=== PATIENT | male | born 1985 | race Caucasian/White ===

== ENCOUNTER 2017-04-24 12:17 | Emergency (ER) | payer SELFPAY | END 2017-04-24 13:04 | disposition left against medical advice (07) | LOC: EMS 12:18 | DX: H57.10 Ocular pain, unspecified eye (principal); Z53.21 Procedure and treatment not carried out due to patient leaving prior to being seen by health care provider ==

== ENCOUNTER 2017-04-24 16:07 | Emergency (ER) | payer SELFPAY ==
[~2017-04-24] VITALS: Ht 170.2 cm; Wt 148.1 kg
[2017-04-24 20:11] VITALS: BP 132/81
== END 2017-04-24 20:13 | disposition home or self-care (01) ==
LOC: EMS 16:22
DX: H16.133 Photokeratitis, bilateral (principal); F17.210 Nicotine dependence, cigarettes, uncomplicated; W89.8XXA Exposure to other man-made visible and ultraviolet light, initial encounter; Y93.89 Activity, other specified; Y92.89 Other specified places as the place of occurrence of the external cause; Y99.0 Civilian activity done for income or pay
CPT/HCPCS: 99283

== ENCOUNTER 2017-05-01 02:19 | Emergency (ER) | payer SELFPAY ==
[~2017-05-01] VITALS: Ht 172.7 cm; Wt 145.4 kg
[2017-05-01 03:58] VITALS: BP 138/70
== END 2017-05-01 04:02 | disposition home or self-care (01) ==
LOC: EMS 02:20
DX: S20.212A Contusion of left front wall of thorax, initial encounter (principal); F17.210 Nicotine dependence, cigarettes, uncomplicated; F15.90 Other stimulant use, unspecified, uncomplicated; Y04.0XXA Assault by unarmed brawl or fight, initial encounter; Y93.89 Activity, other specified; Y92.89 Other specified places as the place of occurrence of the external cause; Y99.8 Other external cause status
CPT/HCPCS: 71101; 99284; 99406

== ENCOUNTER 2022-03-07 16:14 | Emergency (ER) | payer MEDICAID ==
[2022-03-07] MEDS ORDERED: SODIUM CHLORIDE 0.9% 1,000 ML IV ONE (16:45)
[2022-03-07 16:55] LABS: HEMOGLOBIN 14.3 g/dL (13.5-17.5); RED BLOOD CELL COUNT(AUTO) 4.96 MIL/uL (4.50-5.90)
[2022-03-07 16:56] LABS: BASOPHILS % (AUTO) 0.5 % (0.0-2.0); LYMPHOCYTES # (AUTO) 1.8 K/uL (1.0-4.8); LYMPHOCYTES % (AUTO) 15.8 % (22.0-44.0); MEAN CORPUSCULAR HEMOGLOBIN 28.8 pg (26.0-34.0); MEAN CORPUSCULAR HGB CONC 33.2 G/dL (31.0-37.0); MEAN CORPUSCULAR VOLUME 87 fL (80-100); MONOCYTES # (AUTO) 0.7 K/uL (0.1-1.0); MONOCYTES % (AUTO) 6.2 % (2.0-9.0); NEUTROPHILS # (AUTO) 8.5 K/uL (1.8-7.7); NEUTROPHILS % (AUTO) 76.5 % (40.0-70.0); PLATELET COUNT (AUTO) 322 K/uL (150-450); RED CELL DISTRIBUTION WIDTH 14.3 % (11.5-14.5)
[2022-03-07 17:07] LABS: ANION GAP 9 mmol/L (8-16); CALCIUM, TOTAL 9.1 mg/dL (8.8-10.5); CARBON DIOXIDE 28 mmol/L (22-29); CHLORIDE 103 mmol/L (98-107); CREATININE 0.87 mg/dL (0.60-1.30); GLOMERULAR FILTR. RATE CALC > 60 mL/min (>60); GLUCOSE,RANDOM 105 mg/dL (70-110); POTASSIUM 3.6 mmol/L (3.5-5.1); SODIUM SERUM 140 mmol/L (136-145); UREA NITROGEN, BLOOD 14 mg/dL (7-18)
[2022-03-07 17:12] LABS: ALANINE AMINOTRANSFERASE 43 U/L (12-78); ALBUMIN 3.9 g/dL (3.4-5.0); ALKALINE PHOSPHATASE 102 U/L (46-116); ASPARTATE AMINOTRANSFERASE 25 U/L (15-37); BILIRUBIN,TOTAL 0.5 mg/dL (0.1-1.0); LIPASE 115 U/L (73-393)
[2022-03-07] MEDS ORDERED: POLY17PO PO (18:30)
== END 2022-03-07 18:44 | disposition home or self-care (01) ==
LOC: EMS 16:24
DX: F25.9 Schizoaffective disorder, unspecified (principal); R10.30 Lower abdominal pain, unspecified; F15.90 Other stimulant use, unspecified, uncomplicated; F17.210 Nicotine dependence, cigarettes, uncomplicated; Z79.899 Other long term (current) drug therapy
CPT/HCPCS: 36415; 74022; 74176; 80053; 83690; 85025; 96360; 99285; G0480; J7030

== ENCOUNTER 2022-09-04 12:11 | Emergency (ER) | payer MEDICAID ==
[~2022-09-04] VITALS: Ht 170.2 cm; Wt 185.4 kg
[~2022-09-04 12:11] MED LIST: POLY17PO PO
[2022-09-04] MEDS ORDERED: BUPR-50 PO ×2 (12:33→15:12)
[2022-09-04] MEDS ORDERED: TRAZ-252 PO ×2 (12:33→15:12)
[2022-09-04] MEDS ORDERED: OLAN2.5T29 PO ×2 (12:33→15:12)
[2022-09-04] MEDS ORDERED: ZIPR20CA38 PO ×2 (12:33→15:12)
[2022-09-04 13:02] LABS: BASOPHILS % (AUTO) 0.5 % (0.0-2.0); EOSINOPHILS % (AUTO) 1.7 % (1.0-6.0); HEMATOCRIT 41.4 % (41-53); HEMOGLOBIN 13.6 g/dL (13.5-17.5); LYMPHOCYTES # (AUTO) 1.8 K/uL (1.0-4.8); LYMPHOCYTES % (AUTO) 16.8 % (22.0-44.0); MEAN CORPUSCULAR HEMOGLOBIN 28.8 pg (26.0-34.0); MEAN CORPUSCULAR HGB CONC 32.9 G/dL (31.0-37.0); MEAN CORPUSCULAR VOLUME 88 fL (80-100); MONOCYTES # (AUTO) 0.6 K/uL (0.1-1.0); NEUTROPHILS # (AUTO) 8.1 K/uL (1.8-7.7); PLATELET COUNT (AUTO) 333 K/uL (150-450); RED BLOOD CELL COUNT(AUTO) 4.73 MIL/uL (4.50-5.90); RED CELL DISTRIBUTION WIDTH 13.9 % (11.5-14.5)
[2022-09-04 13:26] LABS: ANION GAP 8 mmol/L (8-16); CALCIUM, TOTAL 8.9 mg/dL (8.8-10.5); CARBON DIOXIDE 27 mmol/L (22-29); CHLORIDE 101 mmol/L (98-107); CREATININE 0.85 mg/dL (0.60-1.30); GLUCOSE,RANDOM 110 mg/dL (70-110); POTASSIUM 3.5 mmol/L (3.5-5.1); SODIUM SERUM 136 mmol/L (136-145); UREA NITROGEN, BLOOD 12 mg/dL (7-18)
[2022-09-04 13:32] LABS: GLOMERULAR FILTR. RATE CALC > 60 mL/min (>60)
[2022-09-04 13:36] LABS: ALANINE AMINOTRANSFERASE 28 U/L (12-78); ALBUMIN 3.6 g/dL (3.4-5.0); ALKALINE PHOSPHATASE 104 U/L (46-116); ASPARTATE AMINOTRANSFERASE 23 U/L (15-37); BILIRUBIN,TOTAL 0.6 mg/dL (0.1-1.0); TOTAL PROTEIN, SERUM 7.8 g/dL (6.4-8.2)
[2022-09-04] MEDS ORDERED: OLANZapine 5 MG RAPDIS TABLET PO ONE (15:15)
[2022-09-04 15:52] LABS: AMPHET/METH SCREEN,URINE POSITIVE (NEGATIVE); BARBITURATE SCREEN, URINE NEGATIVE (NEGATIVE); BENZODIAZEPINES SCREEN,URINE NEGATIVE (NEGATIVE); CANNABINOID SCREEN,URINE NEGATIVE (NEGATIVE); COCAINE SCREEN,URINE NEGATIVE (NEGATIVE); METHADONE SCREEN, URINE NEGATIVE (NEGATIVE); OPIATE SCREEN,URINE NEGATIVE (NEGATIVE)
[2022-09-04 15:53] LABS: PHENCYCLIDINE SCREEN,URINE NEGATIVE (NEGATIVE)
[2022-09-04 16:42] VITALS: BP 122/73
== END 2022-09-04 16:44 | disposition home or self-care (01) ==
LOC: EMS 12:36
DX: F25.9 Schizoaffective disorder, unspecified (principal); R45.851 Suicidal ideations; F15.90 Other stimulant use, unspecified, uncomplicated; F17.210 Nicotine dependence, cigarettes, uncomplicated; F32.A Depression, unspecified; Z76.0 Encounter for issue of repeat prescription
CPT/HCPCS: 99284; 80053; 85025; 36415; 80307; G0480

== ENCOUNTER 2022-10-02 23:24 | Inpatient (IN) | payer MEDICAID ==
[~2022-10-02] VITALS: Ht 167.6 cm; Wt 161.5 kg
[~2022-10-02 23:24] MED LIST changes: +BUPR-50 PO; +OLAN2.5T29 PO; -POLY17PO PO; +TRAZ-252 PO; +ZIPR20CA38 PO
[2022-10-02 23:52] LABS: COVID AG,FIA SOURCE NASOPHARYNGEAL
[2022-10-03 00:07] LABS: ANION GAP 12 mmol/L (8-16); CARBON DIOXIDE 28 mmol/L (22-29); CHLORIDE 101 mmol/L (98-107); CREATININE 0.99 mg/dL (0.60-1.30); GLOMERULAR FILTR. RATE CALC > 60 mL/min (>60); GLUCOSE,RANDOM 99 mg/dL (70-110); POTASSIUM 3.7 mmol/L (3.5-5.1); SODIUM SERUM 141 mmol/L (136-145); UREA NITROGEN, BLOOD 14 mg/dL (7-18)
[2022-10-03 00:11] LABS: ALANINE AMINOTRANSFERASE 34 U/L (12-78); ALKALINE PHOSPHATASE 95 U/L (46-116); ASPARTATE AMINOTRANSFERASE 24 U/L (15-37); BILIRUBIN,TOTAL 0.4 mg/dL (0.1-1.0); TOTAL PROTEIN, SERUM 8.5 g/dL (6.4-8.2)
[2022-10-03 00:14] LABS: BASOPHILS % (AUTO) 0.6 % (0.0-2.0); EOSINOPHILS % (AUTO) 0.7 % (1.0-6.0); HEMATOCRIT 42.8 % (41-53); HEMOGLOBIN 14.1 g/dL (13.5-17.5); LYMPHOCYTES # (AUTO) 1.5 K/uL (1.0-4.8); LYMPHOCYTES % (AUTO) 17.1 % (22.0-44.0); MEAN CORPUSCULAR HEMOGLOBIN 29.1 pg (26.0-34.0); MEAN CORPUSCULAR HGB CONC 33.1 G/dL (31.0-37.0); MEAN CORPUSCULAR VOLUME 88 fL (80-100); MONOCYTES # (AUTO) 0.6 K/uL (0.1-1.0); MONOCYTES % (AUTO) 6.9 % (2.0-9.0); NEUTROPHILS # (AUTO) 6.7 K/uL (1.8-7.7); NEUTROPHILS % (AUTO) 74.7 % (40.0-70.0); PLATELET COUNT (AUTO) 359 K/uL (150-450); RED BLOOD CELL COUNT(AUTO) 4.86 MIL/uL (4.50-5.90); RED CELL DISTRIBUTION WIDTH 14.4 % (11.5-14.5)
[2022-10-03 00:16] LABS: AMPHET/METH SCREEN,URINE POSITIVE (NEGATIVE); BARBITURATE SCREEN, URINE NEGATIVE (NEGATIVE); BENZODIAZEPINES SCREEN,URINE NEGATIVE (NEGATIVE); CANNABINOID SCREEN,URINE NEGATIVE (NEGATIVE); COCAINE SCREEN,URINE NEGATIVE (NEGATIVE); METHADONE SCREEN, URINE NEGATIVE (NEGATIVE); OPIATE SCREEN,URINE NEGATIVE (NEGATIVE)
[2022-10-03 00:17] LABS: PHENCYCLIDINE SCREEN,URINE NEGATIVE (NEGATIVE)
[2022-10-03] MEDS ORDERED: HALOPERIDOL 5 MG TABLET PO PRN (00:30)
[2022-10-03] MEDS ORDERED: OLANZapine 5 MG TABLET PO ONE (01:45)
[2022-10-03] MEDS: LORazepam 2 MG TABLET PO PRN (02:12)
[2022-10-03 02:30] VITALS: BP 135/85
[2022-10-03 08:24] VITALS: BP 100/61
[2022-10-03] MEDS ORDERED: MAG HYDROX/AL HYDROX/SIMETH ES 30 ML SUSPENSION UDCUP PO PRN (11:30)
[2022-10-03] MEDS ORDERED: MAGNESIUM HYDROXIDE SUSPENSION 30 ML UDCUP PO PRN (11:30)
[2022-10-03] MEDS ORDERED: GuaiFENesin/D-METHORPHAN [SUGAR-FREE] 200-20MG/10 ML SYRUP UDCUP PO PRN (11:30)
[2022-10-03] MEDS ORDERED: ONDANSETRON HCL 4 MG TABLET PO PRN (11:30)
[2022-10-03] MEDS ORDERED: PETROLATUM,WHITE 28 GM JELLY TP PRN (11:30)
[2022-10-03] MEDS ORDERED: IBUPROFEN 400 MG TABLET PO PRN (11:30)
[2022-10-03] MEDS: BuPROPion HCL XL 150 MG ER TABLET PO SCH (11:30)
[2022-10-03] MEDS ORDERED: ALBUTEROL SULFATE HFA 90 MCG/PUFF 8 GM INHALER IH PRN (11:30)
[2022-10-03] MEDS ORDERED: LOPERAMIDE HCL 2 MG CAPSULE PO PRN (11:30)
[2022-10-03] MEDS ORDERED: DOCUSATE SODIUM 100 MG CAPSULE PO PRN (11:30)
[2022-10-03] MEDS ORDERED: ACETAMINOPHEN 325 MG TABLET PO PRN (11:30)
[2022-10-03] MEDS: OLANZapine 10 MG TABLET PO SCH ×2 (11:30→21:05)
[2022-10-03] MEDS ORDERED: CloNIDine HCL 0.1 MG TABLET PO PRN (11:30)
[2022-10-03] MEDS ORDERED: NICOTINE 14 MG/24 HOUR PATCH TD PRN (11:30)
[2022-10-03] MEDS: ZIPRASIDONE HCL 60 MG CAPSULE PO SCH (19:09)
[2022-10-03] MEDS: TraZODone HCL 50 MG TABLET PO SCH (21:05)
[2022-10-04] MEDS: ZIPRASIDONE HCL 60 MG CAPSULE PO SCH ×2 (06:58→16:25)
[2022-10-04] MEDS: OLANZapine 10 MG TABLET PO SCH ×2 (09:01→20:53)
[2022-10-04] MEDS: BuPROPion HCL XL 150 MG ER TABLET PO SCH (09:01)
[2022-10-04 09:30] VITALS: BP 103/55
[2022-10-04 17:43] VITALS: BP 115/56
[2022-10-04] MEDS: TraZODone HCL 50 MG TABLET PO SCH (20:53)
[2022-10-04] MEDS: ZOLPIDEM TARTRATE 10 MG TABLET PO PRN (22:10)
[2022-10-05] MEDS: ZIPRASIDONE HCL 60 MG CAPSULE PO SCH ×2 (06:44→17:28)
[2022-10-05] MEDS: LORazepam 2 MG TABLET PO PRN ×2 (06:45→17:14)
[2022-10-05] MEDS: OLANZapine 10 MG TABLET PO SCH ×2 (08:14→20:22)
[2022-10-05] MEDS: BuPROPion HCL XL 150 MG ER TABLET PO SCH (08:15)
[2022-10-05 08:32] VITALS: BP 118/79
[2022-10-05 16:15] VITALS: BP 133/74
[2022-10-05] MEDS: TraZODone HCL 50 MG TABLET PO SCH (20:22)
[2022-10-06] MEDS: ZIPRASIDONE HCL 60 MG CAPSULE PO SCH ×2 (06:42→17:47)
[2022-10-06] MEDS: OLANZapine 10 MG TABLET PO SCH ×2 (08:34→20:05)
[2022-10-06] MEDS: BuPROPion HCL XL 150 MG ER TABLET PO SCH (08:35)
[2022-10-06 08:53] VITALS: BP 118/75
[2022-10-06 16:09] VITALS: BP 119/76
[2022-10-06] MEDS: TraZODone HCL 50 MG TABLET PO SCH (20:05)
[2022-10-06] MEDS: ZOLPIDEM TARTRATE 10 MG TABLET PO PRN (21:14)
[2022-10-07] MEDS: ZIPRASIDONE HCL 60 MG CAPSULE PO SCH ×2 (06:39→17:30)
[2022-10-07 08:20] VITALS: BP 111/61
[2022-10-07] MEDS: OLANZapine 10 MG TABLET PO SCH (09:44)
[2022-10-07] MEDS: BuPROPion HCL XL 150 MG ER TABLET PO SCH (09:44)
[2022-10-07] MEDS ORDERED: BUPR-49 PO (16:18)
[2022-10-07] MEDS ORDERED: ZIPR60CA29 PO (16:18)
[2022-10-07] MEDS ORDERED: TRAZ-252 PO (16:18)
[2022-10-07] MEDS ORDERED: OLAN10 PO (16:18)
[2022-10-07 16:24] VITALS: BP 129/78
== END 2022-10-07 16:48 | disposition home or self-care (01) | DRG 750 ==
LOC: EMS 23:25 → 3EC 10-03 00:01
PROVIDERS: ADMIT Psychiatry & Neurology Child & Adolescent Psychiatry; ATTEND Psychiatry & Neurology Child & Adolescent Psychiatry
DX: F25.1 Schizoaffective disorder, depressive type (principal); Z68.43 Body mass index [BMI] 50.0-59.9, adult; E66.01 Morbid (severe) obesity due to excess calories; F43.10 Post-traumatic stress disorder, unspecified; F15.10 Other stimulant abuse, uncomplicated; F17.200 Nicotine dependence, unspecified, uncomplicated; G47.00 Insomnia, unspecified; K21.9 Gastro-esophageal reflux disease without esophagitis; Z20.822 Contact with and (suspected) exposure to COVID-19; Z91.199 Patient's noncompliance with other medical treatment and regimen due to unspecified reason; Z79.899 Other long term (current) drug therapy
CPT/HCPCS: 80053; 80307; 85025; 87081; 93005; 99285; G0480

== ENCOUNTER 2022-11-06 08:19 | Inpatient (IN) | payer MEDICAID, OTHER ==
[~2022-11-06] VITALS: Ht 177.8 cm; Wt 168.5 kg
[~2022-11-06 08:19] MED LIST changes: +BUPR-49 PO; -BUPR-50 PO; +OLAN10 PO; -OLAN2.5T29 PO; -ZIPR20CA38 PO; +ZIPR60CA29 PO
[2022-11-06 09:04] LABS: BASOPHILS % (AUTO) 0.4 % (0.0-2.0); EOSINOPHILS % (AUTO) 0.8 % (1.0-6.0); HEMATOCRIT 43.2 % (41-53); HEMOGLOBIN 14.2 g/dL (13.5-17.5); LYMPHOCYTES # (AUTO) 1.7 K/uL (1.0-4.8); LYMPHOCYTES % (AUTO) 14.4 % (22.0-44.0); MEAN CORPUSCULAR HEMOGLOBIN 28.8 pg (26.0-34.0); MEAN CORPUSCULAR HGB CONC 32.9 G/dL (31.0-37.0); MEAN CORPUSCULAR VOLUME 87 fL (80-100); MONOCYTES # (AUTO) 0.8 K/uL (0.1-1.0); MONOCYTES % (AUTO) 6.8 % (2.0-9.0); NEUTROPHILS # (AUTO) 9.2 K/uL (1.8-7.7); NEUTROPHILS % (AUTO) 77.6 % (40.0-70.0); PLATELET COUNT (AUTO) 367 K/uL (150-450); RED BLOOD CELL COUNT(AUTO) 4.94 MIL/uL (4.50-5.90); RED CELL DISTRIBUTION WIDTH 14.3 % (11.5-14.5)
[2022-11-06 09:18] LABS: ANION GAP 7 mmol/L (8-16); CALCIUM, TOTAL 8.5 mg/dL (8.8-10.5); CARBON DIOXIDE 30 mmol/L (22-29); CHLORIDE 102 mmol/L (98-107); CREATININE 0.91 mg/dL (0.60-1.30); GLOMERULAR FILTR. RATE CALC > 60 mL/min (>60); GLUCOSE,RANDOM 92 mg/dL (70-110); SODIUM SERUM 139 mmol/L (136-145); UREA NITROGEN, BLOOD 12 mg/dL (7-18)
[2022-11-06 09:23] LABS: ALANINE AMINOTRANSFERASE 42 U/L (12-78); ALBUMIN 4.1 g/dL (3.4-5.0); ALKALINE PHOSPHATASE 103 U/L (46-116); ASPARTATE AMINOTRANSFERASE 39 U/L (15-37); BILIRUBIN,TOTAL 0.6 mg/dL (0.1-1.0); TOTAL PROTEIN, SERUM 8.7 g/dL (6.4-8.2)
[2022-11-06 09:25] LABS: COVID AG,FIA SOURCE NASOPHARYNGEAL
[2022-11-06 09:40] LABS: AMPHET/METH SCREEN,URINE POSITIVE (NEGATIVE); BARBITURATE SCREEN, URINE NEGATIVE (NEGATIVE); BENZODIAZEPINES SCREEN,URINE NEGATIVE (NEGATIVE); CANNABINOID SCREEN,URINE NEGATIVE (NEGATIVE); COCAINE SCREEN,URINE NEGATIVE (NEGATIVE); METHADONE SCREEN, URINE NEGATIVE (NEGATIVE); OPIATE SCREEN,URINE NEGATIVE (NEGATIVE); PHENCYCLIDINE SCREEN,URINE NEGATIVE (NEGATIVE)
[2022-11-06] MEDS ORDERED: LORazepam 1 MG TABLET PO ONE (10:45)
[2022-11-06] MEDS ORDERED: HALOPERIDOL 5 MG TABLET PO ONE (11:30)
[2022-11-06 22:05] VITALS: BP 107/77
[2022-11-07 08:21] VITALS: BP 108/66
[2022-11-07] MEDS: OLANZapine 10 MG TABLET PO SCH ×2 (09:00→20:18)
[2022-11-07] MEDS ORDERED: NICOTINE 14 MG/24 HOUR PATCH TD PRN (14:00)
[2022-11-07] MEDS ORDERED: CloNIDine HCL 0.1 MG TABLET PO PRN (14:00)
[2022-11-07] MEDS ORDERED: ONDANSETRON HCL 4 MG TABLET PO PRN (14:00)
[2022-11-07] MEDS ORDERED: MAG HYDROX/AL HYDROX/SIMETH ES 30 ML SUSPENSION UDCUP PO PRN (14:00)
[2022-11-07] MEDS ORDERED: ALBUTEROL SULFATE HFA 90 MCG/PUFF 8 GM INHALER IH PRN (14:00)
[2022-11-07] MEDS ORDERED: MAGNESIUM HYDROXIDE SUSPENSION 30 ML UDCUP PO PRN (14:00)
[2022-11-07] MEDS ORDERED: DOCUSATE SODIUM 100 MG CAPSULE PO PRN (14:00)
[2022-11-07] MEDS ORDERED: GuaiFENesin/D-METHORPHAN [SUGAR-FREE] 200-20MG/10 ML SYRUP UDCUP PO PRN (14:00)
[2022-11-07] MEDS ORDERED: PETROLATUM,WHITE 28 GM JELLY TP PRN (14:00)
[2022-11-07] MEDS ORDERED: ACETAMINOPHEN 325 MG TABLET PO PRN (14:00)
[2022-11-07] MEDS ORDERED: LOPERAMIDE HCL 2 MG CAPSULE PO PRN (14:00)
[2022-11-07] MEDS: LORazepam 2 MG TABLET PO PRN (17:01)
[2022-11-07] MEDS: IBUPROFEN 400 MG TABLET PO PRN (17:01)
[2022-11-07] MEDS: HALOPERIDOL 5 MG TABLET PO PRN (17:01)
[2022-11-07 20:05] VITALS: BP 118/64
[2022-11-07] MEDS: TraZODone HCL 100 MG TABLET PO SCH (20:19)
[2022-11-07] MEDS: ZOLPIDEM TARTRATE 10 MG TABLET PO PRN (20:19)
[2022-11-08 09:31] VITALS: BP 127/68
[2022-11-08] MEDS: OLANZapine 10 MG TABLET PO SCH ×2 (10:02→20:16)
[2022-11-08] MEDS: BuPROPion HCL XL 150 MG ER TABLET PO SCH (10:02)
[2022-11-08] MEDS: IBUPROFEN 400 MG TABLET PO PRN ×2 (10:12→20:17)
[2022-11-08] MEDS: HALOPERIDOL 5 MG TABLET PO PRN (10:13)
[2022-11-08] MEDS: LORazepam 2 MG TABLET PO PRN (10:13)
[2022-11-08 20:13] VITALS: BP 120/70
[2022-11-08] MEDS: ZOLPIDEM TARTRATE 10 MG TABLET PO PRN (20:16)
[2022-11-08] MEDS: TraZODone HCL 100 MG TABLET PO SCH (20:16)
[2022-11-09 08:31] VITALS: BP 122/60
[2022-11-09] MEDS: OLANZapine 10 MG TABLET PO SCH ×2 (08:48→20:21)
[2022-11-09] MEDS: HALOPERIDOL 5 MG TABLET PO PRN (08:48)
[2022-11-09] MEDS: LORazepam 2 MG TABLET PO PRN ×2 (08:48→18:45)
[2022-11-09] MEDS: BuPROPion HCL XL 150 MG ER TABLET PO SCH (08:48)
[2022-11-09] MEDS: TraZODone HCL 100 MG TABLET PO SCH (20:20)
[2022-11-10] MEDS: BuPROPion HCL XL 150 MG ER TABLET PO SCH (08:23)
[2022-11-10] MEDS: OLANZapine 10 MG TABLET PO SCH ×2 (08:23→20:29)
[2022-11-10 08:48] VITALS: BP 128/79
[2022-11-10] MEDS: IBUPROFEN 400 MG TABLET PO PRN (13:42)
[2022-11-10 20:11] VITALS: BP 122/68
[2022-11-10] MEDS: ZOLPIDEM TARTRATE 10 MG TABLET PO PRN (20:29)
[2022-11-10] MEDS: TraZODone HCL 100 MG TABLET PO SCH (20:29)
[2022-11-11] MEDS: OLANZapine 10 MG TABLET PO SCH ×2 (08:31→20:24)
[2022-11-11] MEDS: BuPROPion HCL XL 150 MG ER TABLET PO SCH (08:31)
[2022-11-11 08:38] VITALS: BP 138/76
[2022-11-11 20:10] VITALS: BP 140/82
[2022-11-11] MEDS: TraZODone HCL 100 MG TABLET PO SCH (20:24)
[2022-11-12] MEDS: BuPROPion HCL XL 150 MG ER TABLET PO SCH (08:36)
[2022-11-12] MEDS: OLANZapine 10 MG TABLET PO SCH ×2 (08:36→20:20)
[2022-11-12 09:50] VITALS: BP 114/74
[2022-11-12] MEDS: TraZODone HCL 100 MG TABLET PO SCH (20:20)
[2022-11-12 20:25] VITALS: BP 117/61
[2022-11-13 08:10] VITALS: BP 131/73
[2022-11-13] MEDS: BuPROPion HCL XL 150 MG ER TABLET PO SCH (08:46)
[2022-11-13] MEDS: OLANZapine 10 MG TABLET PO SCH ×2 (08:46→20:30)
[2022-11-13 15:11] LABS: GLUCOMETER DEV NAME(LOC) POC.BV
[2022-11-13] MEDS: DIVALPROEX SODIUM 500 MG DR TABLET PO SCH (16:35)
[2022-11-13 20:06] VITALS: BP 120/77
[2022-11-13] MEDS: TraZODone HCL 100 MG TABLET PO SCH (20:30)
[2022-11-14 08:18] VITALS: BP 123/77
[2022-11-14] MEDS: DIVALPROEX SODIUM 500 MG DR TABLET PO SCH ×2 (08:44→15:55)
[2022-11-14] MEDS: OLANZapine 10 MG TABLET PO SCH ×2 (08:44→20:11)
[2022-11-14] MEDS: BuPROPion HCL XL 150 MG ER TABLET PO SCH (08:45)
[2022-11-14] MEDS: LORazepam 2 MG TABLET PO PRN (19:23)
[2022-11-14 20:03] VITALS: BP 111/69
[2022-11-14] MEDS: TraZODone HCL 100 MG TABLET PO SCH (20:11)
[2022-11-15 07:59] LABS: BASOPHILS % (AUTO) 0.6 % (0.0-2.0); EOSINOPHILS % (AUTO) 1.8 % (1.0-6.0); HEMATOCRIT 46.8 % (41-53); HEMOGLOBIN 15.3 g/dL (13.5-17.5); LYMPHOCYTES # (AUTO) 1.4 K/uL (1.0-4.8); LYMPHOCYTES % (AUTO) 21.9 % (22.0-44.0); MEAN CORPUSCULAR HGB CONC 32.7 G/dL (31.0-37.0); MEAN CORPUSCULAR VOLUME 89 fL (80-100); MONOCYTES # (AUTO) 0.5 K/uL (0.1-1.0); MONOCYTES % (AUTO) 7.1 % (2.0-9.0); NEUTROPHILS # (AUTO) 4.4 K/uL (1.8-7.7); NEUTROPHILS % (AUTO) 68.6 % (40.0-70.0); PLATELET COUNT (AUTO) 300 K/uL (150-450); RED BLOOD CELL COUNT(AUTO) 5.28 MIL/uL (4.50-5.90)
[2022-11-15] MEDS: BuPROPion HCL XL 150 MG ER TABLET PO SCH (08:41)
[2022-11-15] MEDS: OLANZapine 10 MG TABLET PO SCH (08:41)
[2022-11-15] MEDS: DIVALPROEX SODIUM 500 MG DR TABLET PO SCH (08:41)
[2022-11-15 09:18] VITALS: BP 136/70
[2022-11-15] MEDS ORDERED: TRAZ-257 PO (12:10)
[2022-11-15] MEDS ORDERED: DIVA-112 PO (12:11)
== END 2022-11-15 13:15 | disposition home or self-care (01) | DRG 750 ==
LOC: EMS 08:22 → B3A 19:15
PROVIDERS: ADMIT Psychiatry & Neurology Child & Adolescent Psychiatry; ATTEND Psychiatry & Neurology Child & Adolescent Psychiatry
DX: F25.0 Schizoaffective disorder, bipolar type (principal); R45.851 Suicidal ideations; Z91.199 Patient's noncompliance with other medical treatment and regimen due to unspecified reason; D72.829 Elevated white blood cell count, unspecified; F15.10 Other stimulant abuse, uncomplicated; F43.10 Post-traumatic stress disorder, unspecified; R74.01 Elevation of levels of liver transaminase levels; Z20.822 Contact with and (suspected) exposure to COVID-19; F17.210 Nicotine dependence, cigarettes, uncomplicated; Z59.00 Homelessness unspecified
CPT/HCPCS: 80053; 80164; 80307; 85025; 87081; 99285; G0480

== ENCOUNTER 2023-05-12 20:04 | Emergency (ER) | payer MEDICAID ==
[~2023-05-12 20:04] MED LIST changes: +DIVA-112 PO; -TRAZ-252 PO; +TRAZ-257 PO; -ZIPR60CA29 PO
== END 2023-05-12 21:24 | disposition left against medical advice (07) ==
LOC: EMS 20:12
DX: Z53.21 Procedure and treatment not carried out due to patient leaving prior to being seen by health care provider (principal)

== ENCOUNTER 2023-05-13 08:55 | Inpatient (IN) | payer MEDICAID, OTHER ==
[~2023-05-13] VITALS: Ht 180.3 cm; Wt 144.8 kg
[2023-05-13 09:51] LABS: BASOPHILS % (AUTO) 0.2 % (0.0-2.0); EOSINOPHILS % (AUTO) 0.3 % (1.0-6.0); HEMOGLOBIN 13.9 g/dL (13.5-17.5); LYMPHOCYTES # (AUTO) 1.2 K/uL (1.0-4.8); LYMPHOCYTES % (AUTO) 11.1 % (22.0-44.0); MEAN CORPUSCULAR HEMOGLOBIN 29.3 pg (26.0-34.0); MEAN CORPUSCULAR VOLUME 89 fL (80-100); MONOCYTES # (AUTO) 0.7 K/uL (0.1-1.0); MONOCYTES % (AUTO) 6.5 % (2.0-9.0); NEUTROPHILS # (AUTO) 8.5 K/uL (1.8-7.7); NEUTROPHILS % (AUTO) 81.9 % (40.0-70.0); PLATELET COUNT (AUTO) 304 K/uL (150-450); RED BLOOD CELL COUNT(AUTO) 4.73 MIL/uL (4.50-5.90); RED CELL DISTRIBUTION WIDTH 14.4 % (11.5-14.5)
[2023-05-13] MEDS ORDERED: SODIUM CHLORIDE 0.9% 1,000 ML IV ONE ×3 (10:00→14:15)
[2023-05-13 10:01] LABS: ANION GAP 15 mmol/L (8-16); CALCIUM, TOTAL 8.9 mg/dL (8.8-10.5); CARBON DIOXIDE 27 mmol/L (22-29); CHLORIDE 98 mmol/L (98-107); CREATININE 0.94 mg/dL (0.60-1.30); GLOMERULAR FILTR. RATE CALC > 60 mL/min (>60); GLUCOSE,RANDOM 96 mg/dL (70-110); POTASSIUM 3.6 mmol/L (3.5-5.1); SODIUM SERUM 140 mmol/L (136-145)
[2023-05-13 10:07] LABS: ALANINE AMINOTRANSFERASE 43 U/L (12-78); ALBUMIN 3.9 g/dL (3.4-5.0); ALKALINE PHOSPHATASE 100 U/L (46-116); ASPARTATE AMINOTRANSFERASE 33 U/L (15-37); BILIRUBIN,TOTAL 0.8 mg/dL (0.1-1.0)
[2023-05-13 10:13] LABS: ACETAMINOPHEN < 2 mcg/mL (10-30)
[2023-05-13 10:19] LABS: SALICYLATE 0.5 mg/dL (2.8-20.0)
[2023-05-13] MEDS ORDERED: ACETAMINOPHEN 325 MG TABLET PO PRN (14:15)
[2023-05-13] MEDS ORDERED: BISACODYL 10 MG RECTAL RECTAL SUPPOSITORY PR PRN (14:15)
[2023-05-13] MEDS ORDERED: ZOLPIDEM TARTRATE 5 MG TABLET PO PRN (14:15)
[2023-05-13] MEDS ORDERED: MAGNESIUM HYDROXIDE SUSPENSION 30 ML UDCUP PO PRN (14:15)
[2023-05-13] MEDS ORDERED: ONDANSETRON HCL 4 MG/2 ML VIAL IVP PRN (14:15)
[2023-05-13] MEDS ORDERED: MORPHINE SULFATE 2 MG/ML SYRINGE IVP PRN (14:15)
[2023-05-13 16:24] VITALS: BP 97/46; PULSE 59; RESP 19; TEMP 97.8
[2023-05-13] MEDS: HYDROCODONE/ACETAMINOPHEN 5-325 MG TABLET PO PRN (16:31)
[2023-05-13] MEDS: HEPARIN SODIUM,PORCINE 5,000 UNITS/ML VIAL SQ SCH (16:33)
[2023-05-13 20:35] VITALS: BP 124/71; PULSE 63; RESP 24; TEMP 98.1
[2023-05-13] MEDS: DOCUSATE SODIUM 100 MG CAPSULE PO SCH (20:45)
[2023-05-14 00:25] VITALS: BP 114/62; PULSE 79; RESP 24; TEMP 97.7
[2023-05-14 05:00] VITALS: BP 126/80; PULSE 77; RESP 24; TEMP 98.3
[2023-05-14 07:32] LABS: BASOPHILS % (AUTO) 0.3 % (0.0-2.0); HEMATOCRIT 40.7 % (41-53); HEMOGLOBIN 13.4 g/dL (13.5-17.5); LYMPHOCYTES # (AUTO) 1.5 K/uL (1.0-4.8); LYMPHOCYTES % (AUTO) 19.9 % (22.0-44.0); MEAN CORPUSCULAR HEMOGLOBIN 29.5 pg (26.0-34.0); MEAN CORPUSCULAR HGB CONC 32.8 G/dL (31.0-37.0); MEAN CORPUSCULAR VOLUME 90 fL (80-100); MONOCYTES # (AUTO) 0.5 K/uL (0.1-1.0); MONOCYTES % (AUTO) 7.1 % (2.0-9.0); NEUTROPHILS # (AUTO) 5.2 K/uL (1.8-7.7); NEUTROPHILS % (AUTO) 70.7 % (40.0-70.0); PLATELET COUNT (AUTO) 287 K/uL (150-450); RED BLOOD CELL COUNT(AUTO) 4.53 MIL/uL (4.50-5.90); RED CELL DISTRIBUTION WIDTH 14.5 % (11.5-14.5)
[2023-05-14 07:39] LABS: ANION GAP 12 mmol/L (8-16); CALCIUM, TOTAL 7.9 mg/dL (8.8-10.5); CARBON DIOXIDE 25 mmol/L (22-29); CHLORIDE 105 mmol/L (98-107); GLOMERULAR FILTR. RATE CALC > 60 mL/min (>60); GLUCOSE,RANDOM 67 mg/dL (70-110); POTASSIUM 3.7 mmol/L (3.5-5.1); SODIUM SERUM 141 mmol/L (136-145)
[2023-05-14 07:58] VITALS: BP 124/76; PULSE 80; RESP 20; TEMP 97.9
[2023-05-14] MEDS: PANTOPRAZOLE SODIUM 40 MG DR TABLET PO SCH (08:57)
[2023-05-14] MEDS: DOCUSATE SODIUM 100 MG CAPSULE PO SCH ×2 (08:57→21:00)
[2023-05-14] MEDS: HEPARIN SODIUM,PORCINE 5,000 UNITS/ML VIAL SQ SCH ×3 (08:58→16:00)
[2023-05-14 11:29] VITALS: BP 129/87; PULSE 83; RESP 20; TEMP 98.1
[2023-05-14 20:25] VITALS: BP 100/60; PULSE 79; RESP 21; TEMP 97.9
[2023-05-15 00:10] VITALS: BP 120/43; PULSE 69; RESP 21; TEMP 97.8
[2023-05-15] MEDS: HEPARIN SODIUM,PORCINE 5,000 UNITS/ML VIAL SQ SCH ×3 (01:37→15:21)
[2023-05-15 04:52] VITALS: BP 97/51; PULSE 64; RESP 19; TEMP 98.2
[2023-05-15 06:51] LABS: BASOPHILS % (AUTO) 0.4 % (0.0-2.0); EOSINOPHILS % (AUTO) 3.2 % (1.0-6.0); HEMATOCRIT 42.1 % (41-53); HEMOGLOBIN 13.5 g/dL (13.5-17.5); LYMPHOCYTES # (AUTO) 1.8 K/uL (1.0-4.8); LYMPHOCYTES % (AUTO) 26.9 % (22.0-44.0); MEAN CORPUSCULAR HEMOGLOBIN 28.7 pg (26.0-34.0); MEAN CORPUSCULAR HGB CONC 32.1 G/dL (31.0-37.0); MEAN CORPUSCULAR VOLUME 89 fL (80-100); MONOCYTES # (AUTO) 0.5 K/uL (0.1-1.0); MONOCYTES % (AUTO) 7.1 % (2.0-9.0); NEUTROPHILS # (AUTO) 4.1 K/uL (1.8-7.7); NEUTROPHILS % (AUTO) 62.4 % (40.0-70.0); PLATELET COUNT (AUTO) 324 K/uL (150-450); RED BLOOD CELL COUNT(AUTO) 4.71 MIL/uL (4.50-5.90); RED CELL DISTRIBUTION WIDTH 14.3 % (11.5-14.5)
[2023-05-15 07:06] LABS: ANION GAP 4 mmol/L (8-16); CALCIUM, TOTAL 8.5 mg/dL (8.8-10.5); CARBON DIOXIDE 30 mmol/L (22-29); CHLORIDE 106 mmol/L (98-107); CREATININE 0.76 mg/dL (0.60-1.30); GLOMERULAR FILTR. RATE CALC > 60 mL/min (>60); GLUCOSE,RANDOM 79 mg/dL (70-110); POTASSIUM 4.3 mmol/L (3.5-5.1); SODIUM SERUM 140 mmol/L (136-145)
[2023-05-15 08:20] VITALS: BP 135/87; PULSE 67; RESP 20; TEMP 98.2
[2023-05-15] MEDS: PANTOPRAZOLE SODIUM 40 MG DR TABLET PO SCH (08:22)
[2023-05-15] MEDS: HYDROCODONE/ACETAMINOPHEN 5-325 MG TABLET PO PRN (08:22)
[2023-05-15] MEDS: DOCUSATE SODIUM 100 MG CAPSULE PO SCH (08:23)
[2023-05-15] MEDS ORDERED: OLAN5TAB94 PO (09:00)
[2023-05-15 12:35] VITALS: BP 133/75; PULSE 78; RESP 20; TEMP 98.4
[2023-05-15 15:00] VITALS: BP 120/76; PULSE 65; RESP 20; TEMP 98.1
[2023-05-15 15:43] LABS: AMPHET/METH SCREEN,URINE NEGATIVE (NEGATIVE); BARBITURATE SCREEN, URINE NEGATIVE (NEGATIVE); BENZODIAZEPINES SCREEN,URINE NEGATIVE (NEGATIVE); CANNABINOID SCREEN,URINE NEGATIVE (NEGATIVE); COCAINE SCREEN,URINE NEGATIVE (NEGATIVE); METHADONE SCREEN, URINE NEGATIVE (NEGATIVE); OPIATE SCREEN,URINE POSITIVE (NEGATIVE); PHENCYCLIDINE SCREEN,URINE NEGATIVE (NEGATIVE)
[2023-05-15] MEDS ORDERED: OLANZapine 5 MG RAPDIS TABLET PO SCH (21:00)
== END 2023-05-15 18:50 | disposition home or self-care (01) | DRG 812 ==
LOC: EMS 08:55 → 5S 15:10
PROVIDERS: ADMIT Internal Medicine; ATTEND Internal Medicine
DX: T40.691A Poisoning by other narcotics, accidental (unintentional), initial encounter (principal); J96.91 Respiratory failure, unspecified with hypoxia; G92.9 Unspecified toxic encephalopathy; F25.9 Schizoaffective disorder, unspecified; F15.90 Other stimulant use, unspecified, uncomplicated; F32.9 Major depressive disorder, single episode, unspecified; F43.10 Post-traumatic stress disorder, unspecified; Z87.891 Personal history of nicotine dependence; Z79.899 Other long term (current) drug therapy; Y92.89 Other specified places as the place of occurrence of the external cause
CPT/HCPCS: 71045; 80048; 80053; 80164; 80307; 82140; 85025; 93005; 99291; G0480; G0481; J1644; J7030; 36415-L1; 36415-TC